=== PATIENT | male | born 1945 | race Caucasian/White ===

== ENCOUNTER 2022-09-08 15:45 | Inpatient (IN) | payer OTHER ==
[~2022-09-08] VITALS: Ht 190.5 cm; Wt 84.1 kg
[2022-09-08 16:53] LABS: Source, Urine Clean Catch
[2022-09-08 16:56] LABS: BASOPHILS ABSOLUTE AUTO 0.03 K/mm3 (0.00-0.23); BASOPHILS PERCENT AUTO 0 % (0-2); EOSINOPHILS ABSOLUTE AUTO 0.06 K/mm3 (0.00-0.68); EOSINOPHILS PERCENT AUTO 1 % (0-6); Hematocrit 40.8 % (37.0-53.0); Hemoglobin 13.9 g/dL (13.5-17.5); IMMATURE GRAN ABSOLUTE AUTO 0.04 K/mm3 (0.00-0.10); IMMATURE GRAN PERCENT AUTO 1 % (0-1); LYMPHOCYTES ABSOLUTE AUTO 0.69 K/mm3 (0.84-5.20); LYMPHOCYTES PERCENT AUTO 10 % (21-46); MONOCYTES ABSOLUTE AUTO 0.53 K/mm3 (0.16-1.47); MONOCYTES PERCENT AUTO 7 % (4-13); Mean Corpuscular HGB 31.4 pg (26.0-34.0); Mean Corpuscular HGB Conc 34.1 g/dL (31.5-36.5); Mean Corpuscular Volume 92 fL (80-100); Mean Platelet Volume 10.4 fL (9.1-12.4); NEUTROPHILS PERCENT AUTO 81 % (41-73); Platelet Count 192 K/mm3 (150-400); RDW Coefficient Variation 12.1 % (11.7-14.2); RDW Standard Deviation 41.5 fL (35.1-46.3); Red Blood Cell Count 4.42 M/mm3 (4.30-5.90); White Blood Cell Count 7.15 K/mm3 (4.00-11.30)
[2022-09-08 17:10] LABS: Alanine Aminotransfer (ALT/SGP 29 U/L (12-78); Albumin, Blood 3.5 g/dL (3.4-5.0); Albumin/Globulin Ratio 0.9 (0.8-1.8); Alk Phos 76 U/L (50-136); Anion Gap 4 mmol/L (6-16); Aspartate Aminotrans (AST/SGOT 24 U/L (12-37); Bilirubin, Total 0.3 mg/dL (0.1-1.0); Blood Urea Nitrogen 14 mg/dL (8-24); Bun/Creatinine Ratio 20.8 (12.0-20.0); CO2, Blood 29 mmol/L (21-32); Calcium, Blood 9.4 mg/dL (8.5-10.1); Chloride, Blood 105 mmol/L (98-108); Creatinine, Blood 0.67 mg/dL (0.60-1.20); Ethanol (Alcohol), Blood, Med <3 mg/dL; Globulin, Blood 3.7 g/dL (2.2-4.0); Glomerular Filtration Rate 95 (60-); Glucose, Blood 120 mg/dL (70-99); Potassium, Blood 3.8 mmol/L (3.5-5.5); Sodium, Blood 138 mmol/L (136-145); Total Protein, Blood 7.2 g/dL (6.4-8.2)
[2022-09-08 17:33] LABS: Appearance, Urine Clear (Clear); Bilirubin, Urine Neg (Neg); Blood, Urine 2+ (Neg); Color, Urine Yellow (P-Yellow); Glucose Qualitative, Urine Neg (Neg); Ketones, Urine Neg (Neg); Leukocyte Esterase, Urine Neg (Neg); Nitrite, Urine Neg (Neg); Protein, Urine 1+ (Neg); Specific Gravity, Urine 1.015 (1.003-1.022); Urobilinogen, Urine NORM (Normal); pH, Urine 6.5 (5.0-8.0)
[2022-09-08 17:51] LABS: U Barbituate Screen Not Detected; U Benzodiazapine Screen Not Detected; U Buprenorphine Screen Not Detected; U Cannabinoids Screen DETECTED; U Cocaine Screen Not Detected; U Methadone Screen Not Detected; U Methamphetamine Screen Not Detected; U Opiates Screen Not Detected; U Oxycodone Screen Not Detected; U Phencyclidine Screen Not Detected; U Propoxyphene Screen Not Detected
[2022-09-08 18:04] LABS: Bacteria Rare /hpf; Squamous Epithelial Cells Rare /hpf (Few); White Blood Cells, Urine 0-2 /hpf (0-5)
[2022-09-08 18:39] LABS: U Amphetamine Screen Not Detected
[2022-09-08] MEDS ORDERED: OMEP20ER PO (21:58)
[2022-09-08] MEDS ORDERED: OXYB5 PO (22:00)
[2022-09-08] MEDS ORDERED: FLUT.05NI (22:00)
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
--- NOTE | 2022-09-10 06:19 | NUR ---
SUMMARY ASSUMED CARE AT 0100, PT HAS BEEN RESTING QUIETLY/SLEEPING, REMAINS A&O X4, ON 2 L O2 VIA NC, SPO2 >92%. PREVIOUS RN STATED PT REFUSED CPAP SO HE WAS PLACED ON O2 TO MAINTAIN SPO2 WHILE SLEEPING, LUNGS ARE COARSE BILATERAL, PT ENC TO DB&C W/STERNAL PRECAUTIONS. PT IS VOIDING SM AMOUNTS, INCONTINENT X2. TYLENOL GIVEN FOR PAIN. NO OTHER ACUTE CHANGES NOTED, CALL LIGHT IN REACH.
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
--- NOTE | 2022-09-11 00:17 | NUR ---
2200: HOSPITALIST CALLED FOR BP OF 180/79, P 104. PT REMAINS ASYMPTOMATIC. OBTAINED ORDER FOR 10MG HYDRALAZINE Q6 2340: HOSPITALIST CALLED FOR PTS BP RISING TO 196/102. PT REMAINS ASYMOTOMATIC AND REPORTS NO PAIN. ORDER OBTAINED FOR TELE AND 5MG LOPRESSOR Q6 0014: TELE REPORTS SR 95 WITH PAC. PT REMAINS ASYMPTOMATIC
--- NOTE | 2022-09-11 01:17 | NUR ---
0110: HOSPITALIST CALLED FOR PTS BP 200/80 WITH A PULSE OF 102. RECIEVED INSTRUCTIONS TO BLADDER SCAN AND REPORT NUMBER BACK TO DR TORRES. ALSO RECIEVED ORDER FOR 10 MG LABETEALOL NOW AND TO REPEAT DOSE AGAIN IN 30 MINUTES IF SYSTOLIC BP IS >160. PT REMAINS ASYMPTOMATIC OF CP, PRESSURE, OR TIGHTNESS.
--- NOTE | 2022-09-11 02:17 | NUR ---
0215: SECOND DOSE OF LABETALOL GIVEN. PT REMAINS ASYMPTOMATIC
--- NOTE | 2022-09-11 04:16 | NUR ---
VSS. SEE PREVIOUS NOTED FOR BP MANAGEMENT. STRAIT CATH DRAINED 425. PT SLEPT ON AND OFF T/O THE NIGHT DUE TO BP MANAGEMENT. INC T/O THE NIGHT. PLAN FOR PT TO BE EVALUATED TODAY FOR POTENTIAL D/C. PT IS CURRENTLY RESTING, IN NO DISTRESS, CALL LIGHT IN REACH
[2022-09-11 11:32] LABS: Hematocrit 40.2 % (37.0-53.0); Mean Corpuscular HGB 31.3 pg (26.0-34.0); Mean Corpuscular HGB Conc 34.8 g/dL (31.5-36.5); Mean Corpuscular Volume 90 fL (80-100); Mean Platelet Volume 10.1 fL (9.1-12.4); Platelet Count 181 K/mm3 (150-400); RDW Coefficient Variation 12.1 % (11.7-14.2); RDW Standard Deviation 40.1 fL (35.1-46.3); Red Blood Cell Count 4.48 M/mm3 (4.30-5.90); White Blood Cell Count 8.58 K/mm3 (4.00-11.30)
[2022-09-11 11:38] LABS: Albumin, Blood 2.9 g/dL (3.4-5.0); Anion Gap 8 mmol/L (6-16); Blood Urea Nitrogen 14 mg/dL (8-24); Bun/Creatinine Ratio 21.5 (12.0-20.0); CO2, Blood 29 mmol/L (21-32); Calcium, Blood 8.7 mg/dL (8.5-10.1); Chloride, Blood 94 mmol/L (98-108); Creatinine, Blood 0.65 mg/dL (0.60-1.20); Glomerular Filtration Rate 96 (60-); Glucose, Blood 158 mg/dL (70-99); Potassium, Blood 3.7 mmol/L (3.5-5.5); Sodium, Blood 131 mmol/L (136-145)
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
--- NOTE | 2022-09-12 06:02 | NUR ---
SHIFT SUMMARY AOX4-ANSWERS QUESTIONS APPROPRIATE. IS SLOW TO RESPOND. DENIES N/T. HAS OCC UNCOORDINATION c BILAT ARMS. BP SLIGHTLY ELEVATED THIS AM HOWEVER PT HAD TO HAVE BM, AFTER SM FORMED BM & BACK IN BED BP DECREASED. REST OF VITALS STABLE. TELE ST 102 c PVC. DENIES ANY PAIN T/O NIGHT. HAS DIM COARSE BREATH SOUNDS c OCC MOIST NONPRODUCTIVE COUGH. PT OCC WILL COUGH AFTER DRINKING WELL, WILL INFORM DAY NURSE. CALL LIGHT IN REACH, WILL MONITOR.
--- NOTE | 2022-09-12 11:30 | NUR ---
PT OBSERVED HAVING SOME DIFFICULTY SWALLOWING PILLS AND COUGHING AFTER EATING AND DRINKING. PT'S REPORTS THIS HAS BEEN AN ISSUE AT HOME. DR. RIZO NOTIFIED AND ST [facility]DEL[facility] ORDERED.
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
--- NOTE | 2022-09-12 22:42 | NUR ---
NSR @ 92 BPM PER HOSPITAL PERSONNEL DIRECTOR DARRION
--- NOTE | 2022-09-13 00:16 | NUR ---
NOTIFIED BY [employer] DARRION THAT PT HR FLIPPED TO AFIB AND HAS AVERAGED 130-160'S ON HR. PT ASYMPTOMATIC AND WAS SLEEPING WHEN THIS OCCURED. NOTIFIED DR BARRON WHO GAVE ORDER FOR 5 MG IV LOPRESSOR AND REPEAT AFTER 30 MINUTES IF HR STILL >110.
[2022-09-13 05:38] LABS: Bun/Creatinine Ratio 32.3 (12.0-20.0); Creatinine, Blood 0.62 mg/dL (0.60-1.20)
--- NOTE | 2022-09-13 06:11 | NUR ---
DIRECTOR PUBLIC SUMMARY PT FLIPPED TO AFIB W/ RVR AROUND MIDNIGHT TONIGHT PER STRADDLE BUG DRIVER. HR 130-160'S. MEDICATED WITH 5 MG IV LOPRESSOR X2 WITH MINIMAL EFFECTIVNESS. GAVE DOSE OF 10 MG CARDIZEM IV PER DR BARRON WHICH BROUGHT HR DOWN TO 110'S FOR SHORT PERIOD OF TIME HOWEVER PT IS NOW BACK TO 140-160'S. PT IS ASYMPTOMATIC AND HAS BEEN SLEEPING MOST OF THE NIGHT, DENIES CP. RECIEVED ORDER TO TRANSFER PT TO PCU ON A CARDIZEM DRIP. REPORT GIVEN TO MANAGER MACHINEERIS PLASCENCIA.
[2022-09-13 06:38] LABS: Calcium, Blood 8.5 mg/dL (8.5-10.1)
--- NOTE | 2022-09-13 06:54 | NUR ---
RECIEVED REPORT FROM STACY MILLS RN. PT TRANSFERRED FROM 217 D/T A.FIB RVR WITH RATE FROM 130-160s. UPON ARRIVAL TO THE UNIT PT IS A&OX4, FOLLOWS COMMANDS, NO C/O PAIN OR CP CURRENTLY. ON THE MONITOR HE IS SR WITH HR 99-110 AND BP IS WNL. 2L NC PLACED ON PT D/T O2 SAT OF 88%. HE HAS A WET AND WEAK COUGH WITH SOME CRACKLES IN HIS LUNGS. PROVIDED PT WITH ICE WATER AND URINAL PER REQUEST. WILL PASS ON TO DAY SHIFT RN THAT PT IS SCHEDULED TO HAVE A BARIUM SWALLOW EVAL TODAY AND AN ECHO.
--- NOTE | 2022-09-13 07:36 | NUR ---
CARE OF PT ASSUMED AT 0700. PT SLEEPING, AWAKENS TO VOICE. PT DENIES C/O PAIN AT REST BUT DID STATE HE HAD PAIN WITH DEEP BREATH. SATS 93% ON 1L. PT IS IN SINUS RYTHYM, RATE 90'S, CARDIZEM GTT WAS NOT STARTED.
[2022-09-13 08:13] LABS: BASOPHILS ABSOLUTE AUTO 0.01 K/mm3 (0.00-0.23); BASOPHILS PERCENT AUTO 0 % (0-2); EOSINOPHILS PERCENT AUTO 0 % (0-6); Hematocrit 39.3 % (37.0-53.0); IMMATURE GRAN ABSOLUTE AUTO 0.02 K/mm3 (0.00-0.10); IMMATURE GRAN PERCENT AUTO 0 % (0-1); LYMPHOCYTES PERCENT AUTO 11 % (21-46); MONOCYTES ABSOLUTE AUTO 1.08 K/mm3 (0.16-1.47); MONOCYTES PERCENT AUTO 11 % (4-13); Mean Corpuscular HGB 31.5 pg (26.0-34.0); Mean Corpuscular HGB Conc 35.6 g/dL (31.5-36.5); Mean Corpuscular Volume 88 fL (80-100); Mean Platelet Volume 9.6 fL (9.1-12.4); NEUTROPHILS ABSOLUTE AUTO 7.58 K/mm3 (1.96-9.15); NEUTROPHILS PERCENT AUTO 78 % (41-73); Platelet Count 220 K/mm3 (150-400); RDW Coefficient Variation 12.2 % (11.7-14.2); RDW Standard Deviation 39.3 fL (35.1-46.3); Red Blood Cell Count 4.45 M/mm3 (4.30-5.90); White Blood Cell Count 9.79 K/mm3 (4.00-11.30)
--- NOTE | 2022-09-13 09:52 | NUR ---
EKG ORDERED AND COMPLETED. PT IN CT FOR PE STUDY. DR RIZO WAS AT BEDSIDE TO SEE PT AND SPOKE W PT'S . PT'S IS CONCERNED THAT PT IS NO WHERE NEAR BASLINE FAR COGNITIVE FUNCTION. PT TO HAVE ECHO AND BARIUM STUDY TODAY WELL.
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
--- NOTE | 2022-09-13 13:26 | NUR ---
DR RIZO CALLED WITH UPDATE, BLOOD CX AND REPEAT HEAD CT TO BE ORDERED.
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
--- NOTE | 2022-09-13 16:50 | NUR ---
NO CHANGE IN CT SCAN. PT RESTING W/O COMPLAINTS. AT BEDSIDE. CONDOM CATH PLACED. ORAL CARE COMPLETED. PT REPOSITIONED ON SIDE, HEELS FLOATED.
[2022-09-14 03:39] LABS: BASOPHILS ABSOLUTE AUTO 0.01 K/mm3 (0.00-0.23); BASOPHILS PERCENT AUTO 0 % (0-2); EOSINOPHILS ABSOLUTE AUTO 0.01 K/mm3 (0.00-0.68); EOSINOPHILS PERCENT AUTO 0 % (0-6); Hematocrit 36.6 % (37.0-53.0); Hemoglobin 12.7 g/dL (13.5-17.5); IMMATURE GRAN ABSOLUTE AUTO 0.03 K/mm3 (0.00-0.10); IMMATURE GRAN PERCENT AUTO 0 % (0-1); LYMPHOCYTES PERCENT AUTO 12 % (21-46); MONOCYTES ABSOLUTE AUTO 0.99 K/mm3 (0.16-1.47); MONOCYTES PERCENT AUTO 11 % (4-13); Mean Corpuscular HGB 31.1 pg (26.0-34.0); Mean Corpuscular HGB Conc 34.7 g/dL (31.5-36.5); Mean Corpuscular Volume 90 fL (80-100); NEUTROPHILS ABSOLUTE AUTO 7.33 K/mm3 (1.96-9.15); NEUTROPHILS PERCENT AUTO 77 % (41-73); Platelet Count 205 K/mm3 (150-400); RDW Coefficient Variation 12.5 % (11.7-14.2); RDW Standard Deviation 41.2 fL (35.1-46.3); Red Blood Cell Count 4.09 M/mm3 (4.30-5.90); White Blood Cell Count 9.47 K/mm3 (4.00-11.30)
[2022-09-14 04:36] LABS: Albumin, Blood 2.3 g/dL (3.4-5.0); Anion Gap 7 mmol/L (6-16); Blood Urea Nitrogen 20 mg/dL (8-24); Bun/Creatinine Ratio 30.8 (12.0-20.0); CO2, Blood 27 mmol/L (21-32); Calcium, Blood 8.5 mg/dL (8.5-10.1); Chloride, Blood 100 mmol/L (98-108); Creatinine, Blood 0.65 mg/dL (0.60-1.20); Glomerular Filtration Rate 96 (60-); Glucose, Blood 124 mg/dL (70-99); Phosphorus, Blood 3.1 mg/dL (2.5-4.9); Potassium, Blood 3.9 mmol/L (3.5-5.5); Sodium, Blood 134 mmol/L (136-145)
--- NOTE | 2022-09-14 07:16 | NUR ---
SHIFT SUMMARY: THIS AUTHOR ASSUMED PATIENT CARES FROM . GENERAL: NO ACUTE EVENTS OVERNIGHT. NEURO: PASCUA YAQUI; A BIT WITHDRAWN. ORIENTED. DENIES PAIN. CARDS: WDL OTHER THAN A BRIEF RUN OF VENTRICULAR TRIGEMINY NOTED ON MONITOR. RESOLVED QUICKLY. RESP: HOME CPAP ON AT NIGHT WITH NO O2 BLEED-IN. SPO2 89-92% OVERNIGHT. MSK: NOT OUT OF BED BUT MOVES ALL EXTREMITIES TO COMMAND. GENERALLY WEAK. INTEG: NO NEW ABNORMALITIES NOTED. TURNED A FEW TIMES FOR PT COMFORT. GI/: NO BM OVERNIGHT; HE IS WEARING CONDOM CATHETER - PATENT AND DRAINING TO GRAVITY. ADEQUATE UOP LAST NIGHT.
--- NOTE | 2022-09-14 07:48 | NUR ---
CARE ASSUMED OF PT AT 0700. PT SLEEPING THIS AM ON HOME CPAP. PT AWAKENS TO VOICE, OX3, SLOW TO RESPOND TO DIRECTIONS AND QUESTIONS. PT DENIES C/O PAIN. C/O DRY MOUTH. PLAN: PULM TOILET, OOB TO CHAIR, PT/OT, SPEECH RE-EVAL.
[2022-09-14 09:17] LABS: International Normalized Ratio 1.09; Prothrombin Time Results 11.4 Sec (9.7-11.5)
--- NOTE | 2022-09-14 14:02 | NUR ---
PT OOB TO CHAIR W PT ASSIST. PT DID MUCH BETTER TODAY, AT 75% BETTER TODAY THAN YESTERDAY. ABLE TO BALANCE SELF AT EDGE OF BED, ABLE TO WALK TO CHAIR W WALKER/GAIT BELT AND SBA. PT SHAVED/ASSISTED. PT BRUSHED HIS TEETH. PT RESTING NOW IN CHAIR W/O COMPLAINTS. PT IS ALSO MUCH MORE ALERT AND CONVERSIVE TODAY. COUGH IS ALSO STRONGER; SPUTUM SENT.
--- NOTE | 2022-09-14 16:28 | NUR ---
PT CONVERTED FROM NSR TO AFIB RVR W RATE 130-160'S. BP HTN. PT AWAKE, ASYMPTOMATIC. DR RIZO CALLED AND NOTIFIED. LOPRESSOR PUSH GIVEN FIRST, FOLLOWED BY CARDIZEM GTT IF RATE NOT CONTROLLED. HEART RATE DOWN 110-120'S.
--- NOTE | 2022-09-14 17:02 | NUR ---
LOPRESSOR GIVEN, HR LOWERED FOR A SHORT PERIOD. CARDIZEM STARTED AT 5MG/HR. BP STABLE. O2 PLACED INITIALLY AT 1L THEN INCREASED TO 2L TO KEEP SATS >90%. PT WITH PRODUCTIVE WET COUGH.
--- NOTE | 2022-09-14 22:54 | NUR ---
pt converted from a fib to sinus rhythm at approx 2145
--- NOTE | 2022-09-15 01:55 | NUR ---
Spiritual care visit conducted. Pt's spouse, in ER and so I provided notification services, a calming presence, grief support, life review and prayer to pt and his dtr Fernanda. I spend over 50 minutes with pt and Fernanda as they process the . Pt and Fernanda display evidence of being comforted.
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
[2022-09-15 07:23] LABS: BASOPHILS ABSOLUTE AUTO 0.02 K/mm3 (0.00-0.23); BASOPHILS PERCENT AUTO 0 % (0-2); EOSINOPHILS ABSOLUTE AUTO 0.03 K/mm3 (0.00-0.68); EOSINOPHILS PERCENT AUTO 1 % (0-6); Hematocrit 31.5 % (37.0-53.0); Hemoglobin 10.9 g/dL (13.5-17.5); IMMATURE GRAN ABSOLUTE AUTO 0.03 K/mm3 (0.00-0.10); IMMATURE GRAN PERCENT AUTO 1 % (0-1); LYMPHOCYTES ABSOLUTE AUTO 1.26 K/mm3 (0.84-5.20); LYMPHOCYTES PERCENT AUTO 20 % (21-46); MONOCYTES ABSOLUTE AUTO 0.65 K/mm3 (0.16-1.47); MONOCYTES PERCENT AUTO 10 % (4-13); Mean Corpuscular HGB 31.4 pg (26.0-34.0); Mean Corpuscular HGB Conc 34.6 g/dL (31.5-36.5); Mean Corpuscular Volume 91 fL (80-100); Mean Platelet Volume 9.2 fL (9.1-12.4); NEUTROPHILS ABSOLUTE AUTO 4.44 K/mm3 (1.96-9.15); NEUTROPHILS PERCENT AUTO 69 % (41-73); Platelet Count 202 K/mm3 (150-400); RDW Coefficient Variation 12.3 % (11.7-14.2); RDW Standard Deviation 41.1 fL (35.1-46.3); Red Blood Cell Count 3.47 M/mm3 (4.30-5.90); White Blood Cell Count 6.43 K/mm3 (4.00-11.30)
--- NOTE | 2022-09-15 07:32 | NUR ---
ASSUMED CARE: PT LAYING IN BED, DAUGHTER AT BEDSIDE. PT IS NSR AT 79 CURRENTLY, ON 1L O2 VIA NC. HEPARIN GTT RUNNING PER ORDERS. NO ACUTE NEEDS AT THIS TIME.
[2022-09-15 07:41] LABS: Bun/Creatinine Ratio 30.5 (12.0-20.0); Calcium, Blood 8.2 mg/dL (8.5-10.1); Creatinine, Blood 0.53 mg/dL (0.60-1.20); Potassium, Blood 3.8 mmol/L (3.5-5.5)
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
--- NOTE | 2022-09-15 18:39 | NUR ---
SHIFT SUMMARY: PT WORKED WITH THERAPY THIS SHIFT. UP IN CHAIR FOR A FEW HOURS. ONE ASSIST WITH WALKER AND GAIT BELT. STERNAL PAIN WITH GETTING UP OUT OF CHAIR AND THERAPY STATES HE DOES BETTER IF HE USES WALKER TO STAND INSTEAD OF CHAIR. REPORT CALLED TO ERIS GARCIA. FAMILY AWARE OF TRANSFER. NO ACUTE NEEDS OR CONCERNS AT THIS TIME.
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
--- NOTE | 2022-09-16 06:12 | NUR ---
SHIFT SUMMARY PT A&O THROUGHOUT SHIFT; RESPONSES ARE A BIT SLOWED BUT APPROPRIATE. PT REPORTS NO PAIN, CHEST PAIN/PRESSURE OR SOB. PT USING PILLOW FOR SPLINTING OF STERNAL FX. I.S AT BEDSIDE, PT ENCOURAGED TO USE. VS; SBP 170'S, SR W/HR IN 80'S, 02 SATS MAINTAINED ON RA. TEMP 99.2 - 99.7; DECLINED MEDICATION DUE TO IT BEING PER RECTUM. PT MEDICATED W/5MG LOPRESSSOR X1 FOR ELEVATED SBP; REASSESSMENT SHOWED SBP 164, THEN MAINTAINED IN 160'S THROUGHOUT SHIFT. PT RESTED WELL THROUGHOUT SHIFT. CONDOM CATHETER IN PLACE AND DRAINING TO GRAVITY; GOOD OUTPUT. NS INFUSING PER EMAR, HEPARIN INFUSING PER EMAR. PT USING HOME CPAP DURING NIGHT. PT REPOSITIONED NEEDED. CALL LIGHT IN REACH AND PT CALLS APPROPRIATELY.
--- NOTE | 2022-09-16 17:24 | NUR ---
END OF SHIFT: NO ACUTE CHANGES FROM ASSUMPTION OF CARE. DENIES CHEST PAIN/PRESSURE OR SOB AT REST. PATIENT WAS 1 PERSON SBA WITH FWW AND GAIT BELT TO RESTROOM. STILL INFUSING 100 mL OF NS, RECIEVING ZOSYN, HAD ONE BOUT OF NAUSEA RESOLVED WITH ZOFRAN. NO SIGNS OF ACUTE DISTRESS. WILL CONTINUE TO MONITOR UNTIL SHIFT CHANGE.
--- NOTE | 2022-09-16 18:03 | NUR ---
PATIENT HAS BEEN COMPLAINING OF STOMACH PAIN 3-4 EASED WITH ZOFRAN. PATIENT NOW HAVING CLINIMIX INFUSING AND NS HAS BEEN ON STANDBY TO PREVENT FLUID OVERLOAD AT THIS TIME. WILL CONTINUE TO MONITOR
--- NOTE | 2022-09-17 02:30 | NUR ---
CALL TO DR. JONNATHAN ALLEN REGARDING PERSISTENT HYPERTENSION EXCEEDING THE PRN ANTIHYPERTENSIVE PARAMETERS OF 170 SYSTOLIC DESPITE ADMINISTRATION OF BOTH PRN METOPROLOL AND PRN HYDRALAZINE. ALSO, REASSESSMENT OF LUNG SOUNDS AUSCULTATED CRACKLES THROUGHOUT. ORDER RECEIVED FOR INCREASE IN HYDRALAZINE PRN DOSE AND TO GIVE AN ADDITIONAL DOSE NOW, PLUS ONE TIME DOSE OF 40 MG IV LASIX. WILL CONTINUE TO MONITOR
--- NOTE | 2022-09-17 04:00 | NUR ---
CALL TO DR. JONNATHAN ALLEN REGARDING CONFIRMED ECG SHOWING ATRIAL FIBRILLATION WITH RVR IN 140S -150S IN PATIENT WITH PREVIOUS INCIDENT OF AFIB RVR DURING THIS HOSPITAL STAY. ORDER RECEIVED TO ADMINISTER 5 MG IV METOPROLOL FOR AFIB WITH SUSTAINED HEART RATE GREATER THAN 120. WILL CONTINUE TO MONITOR.
[2022-09-17 04:37] LABS: BASOPHILS ABSOLUTE AUTO 0.02 K/mm3 (0.00-0.23); BASOPHILS PERCENT AUTO 0 % (0-2); EOSINOPHILS ABSOLUTE AUTO 0.01 K/mm3 (0.00-0.68); EOSINOPHILS PERCENT AUTO 0 % (0-6); Hematocrit 35.3 % (37.0-53.0); Hemoglobin 12.5 g/dL (13.5-17.5); IMMATURE GRAN PERCENT AUTO 1 % (0-1); LYMPHOCYTES ABSOLUTE AUTO 1.15 K/mm3 (0.84-5.20); LYMPHOCYTES PERCENT AUTO 12 % (21-46); MONOCYTES ABSOLUTE AUTO 0.55 K/mm3 (0.16-1.47); MONOCYTES PERCENT AUTO 6 % (4-13); Mean Corpuscular HGB 30.7 pg (26.0-34.0); Mean Corpuscular HGB Conc 35.4 g/dL (31.5-36.5); Mean Corpuscular Volume 87 fL (80-100); Mean Platelet Volume 9.9 fL (9.1-12.4); NEUTROPHILS ABSOLUTE AUTO 8.02 K/mm3 (1.96-9.15); NEUTROPHILS PERCENT AUTO 81 % (41-73); Platelet Count 345 K/mm3 (150-400); RDW Coefficient Variation 11.7 % (11.7-14.2); Red Blood Cell Count 4.07 M/mm3 (4.30-5.90); White Blood Cell Count 9.85 K/mm3 (4.00-11.30)
[2022-09-17 04:55] LABS: Bun/Creatinine Ratio 36.9 (12.0-20.0); Calcium, Blood 8.4 mg/dL (8.5-10.1); Creatinine, Blood 0.41 mg/dL (0.60-1.20); Potassium, Blood 3.5 mmol/L (3.5-5.5)
--- NOTE | 2022-09-17 06:57 | NUR ---
CALL TO DR. JONNATHAN ALLEN REGARDING AFIB RVR WITH PERSISTENT RATES IN THE 140S - 150S. TO PLACE ORDER FOR LIZZ REID
--- NOTE | 2022-09-17 15:10 | NUR ---
CONVERTED TO SINUS RHYTHM AT 1332. CARDIZEM DC'D, CURENT RATE 88.
--- NOTE | 2022-09-17 17:48 | NUR ---
SHIFT SUMMARY; ASSUMED CARE AT 0700. A/A/OX4, COOPERATIVE WITH CARE. CARDIZEM DRIP STARTED AT 5ML/HR SHORTLY AFTER SHIFT CHANGE FOR AFIB HR 140-150'S. TITRATED UP TO 10ML/HR. MOVES SELF ON GURNEY. ENCOURAGED DEEP BREATHING AND IS USE. CONVERTED TO SINUS AT 1332, CARDIZEM DC'D. CLINIMIX INFUSING AT 100/ML HR. CONDOM CATH IN PLACE, UP TO CHAIR WITH 2 PERSON ASSIST IN AFTERNOON, TOLERATED WELL. ASSISTED BACK TO BED. FAMILY AT BEDSIDE MOST OF DAY. BED BATH AND LINEN CHANGE COMPLETED, WILL CONTINUE TO MONITOR AND TREAT UNTIL CHANGE OF SHIFT.
--- NOTE | 2022-09-18 04:55 | NUR ---
SHIFT SUMMARY PT A&Ox4, CALLS AND COMMUNICATES NEEDS APPROPRIATELY. VSS, SpO2> 92% RA, DENIES SOB. BP ELEVATED, MAMANAGED PER EMAR. PT REMAINED IN NSR 90's THIS SHIFT, DENIES CP/PRESSURE. PT REPORTS MILD DISCOMFORT AT STERNUM Fx. CLINIMIX gtt AT 100mLs/hr. PT REMAINED NPO. CONDOM CATH IN PLACE, PATENT AND DRAINING TO GAVITY. PT WITH FLAT AFFECT. NO ACUTE EVENTS THIS SHIFT, WILL REPORT TO ONCOMING RN.
--- NOTE | 2022-09-18 18:49 | NUR ---
END OF SHIFT: PATIENT FAILED BARIUM SWALLOW, GI CONSULTED. DR RIVAS TO SEE AFTER HIS CLINIC. PATIENT DENIES CHEST PAIN OR PRESSURE AT THIS TIME. SPO2 94% OR GREATER ON RA. PATIENT HAS BEEN IMPROVING ON DEPRESSED AFFECT. PATINET STILL ON CLINIMIX FAMILY AT BEDSIDE. ZOSYN Q8 TOLERATING WELL, HAS BEEN AFEBRILE, FLUSHED AT TIME SUN'AQ, WORKED WITH PT/OT WELL NO CONCERNS FROM THIS RN BESIDE NEED FOR PEG. WILL CONTINUE TO MONITOR UNTIL SHIFT CHANGE
--- NOTE | 2022-09-19 04:24 | NUR ---
SHIFT SUMMARY PT A&Ox4, CALLS AND COMMUNICATES NEEDS APPROPRIATELY. VSS, SpO2> 92% RA, DENIES SOB. BP ELEVATED, MAMANAGED PER EMAR. PT REMAINED IN NSR 90's THIS SHIFT, DENIES CP/PRESSURE. PT REPORTS MILD DISCOMFORT AT STERNUM Fx. CLINIMIX gtt AT 100mLs/hr. PT REMAINED NPO. CONDOM CATH IN PLACE, PATENT AND DRAINING TO GAVITY. PT's WITHDRAWN/FLAT AFFECT IMPROVING. NO ACUTE EVENTS THIS SHIFT, WILL REPORT TO ONCOMING RN.
[2022-09-19 05:13] LABS: Hematocrit 31.1 % (37.0-53.0); Hemoglobin 11.2 g/dL (13.5-17.5); Mean Corpuscular HGB 31.4 pg (26.0-34.0); Mean Corpuscular Volume 87 fL (80-100); Platelet Count 402 K/mm3 (150-400); RDW Standard Deviation 38.9 fL (35.1-46.3); Red Blood Cell Count 3.57 M/mm3 (4.30-5.90); White Blood Cell Count 8.92 K/mm3 (4.00-11.30)
--- NOTE | 2022-09-19 08:30 | NUR ---
INITIAL ASSESSMENT: Patient is alert and oriented. He is lying in bed trying to respond to his sisters text on his cell phone. He denies pain at this time. HRR, SR in the 90s. LS DIM in the bases, biox WNL on RA. BT+, pt states he had a BM two days ago. Patient is strict NPO due to aspiration precautions, plan for a possible PEG tube placement today. Dr. Fernandez said he will try and get a hold of general surgery, if they aren't available we will try GI. VSS. Catapress patch placed to right shoulder. Daughter at the bedside. Patient denies other needs at this time. Call light in reach.
--- NOTE | 2022-09-19 14:27 | NUR ---
Patient is lying in bed and alert. Pt immediately talks about the need for feeding tube placement. He talks about the challenges in finding an open facility in [place], the absolute strength and comfort it is to have his dtr Brooke and son Matt here from out of town and the family unit complications that exist outside of Matt and Brooke. We discuss his bereavement process, his mentality as he grieves the loss of some mobility and independence and the strength that he receives from certain friends and particularly Father Vaughn from [place]. Pt admits to spiritual distress as he tells me that he "has had it up to here with all the prayers." He states' "Show me the money." So we leave the spiritual discussion alone for today. I assist in his bereavement process while giving gentle counselor education professor, and I provide thereapeutic listening, a calming presence and anxiety containment. Patient voices appreciation for the visit and shows signs of reduced stress.
--- NOTE | 2022-09-19 15:30 | NUR ---
UPDATE: Patient has been able work with therapy and be OOB to the chair for a couple of hours. Clinimix has been infusing at 100 ml/hr. Condom cath came off, pt cleaned up and brief in place. Day surgery is here to get the patient to have his PEG tube placed.
--- NOTE | 2022-09-19 17:20 | NUR ---
09/19/22 1720 Daryn Vo History, Chart, Medications and Allergies reviewed before start of procedure. MONITOR INTACT WITH CONTINUOUS PULSE OXIMETRY AND INTERMITTENT BP. 3-LEAD EKG REVIEWED WITH PHYSICIAN PRIOR TO START OF PROCEDURE. O2 VIA N/C INTACT THROUGHOUT SEDATION/PROCEDURE. Bite Block Placed. SCHEDULE MANAGER CALLED AND NOTIFIED OF TELE BOX BEING SHUT OFF.
--- NOTE | 2022-09-19 18:00 | NUR ---
Patient arrived back from having his PEG tube placed, orders for the OK to use tomorrow. VSS. PT repositioned to his right side. Patient denies other needs at this time.
--- NOTE | 2022-09-19 18:18 | NUR ---
Summary: Patient has been alert and oriented t/o the shift. He was able to work with therapy-walking around in the room and sitting up in the chair for a couple of hours. HRR, he has been SR in the 90s for the majority of the shift, BP stable. LS DIM in the bases, biox WNL on RA. BT+, pt states he had a BM a couple of days ago. He had a peg tube placed to the upper abd, gauze dressing CDI, able to use tomorrow AM. PPP. No acute changes this shift. Pt has been down graded to medical floor status. Will report to oncoming RN.
[2022-09-20 05:19] LABS: Hematocrit 31.3 % (37.0-53.0); Hemoglobin 10.9 g/dL (13.5-17.5); Mean Corpuscular HGB Conc 34.8 g/dL (31.5-36.5); Mean Corpuscular Volume 89 fL (80-100); Mean Platelet Volume 9.1 fL (9.1-12.4); Platelet Count 408 K/mm3 (150-400); RDW Coefficient Variation 12.3 % (11.7-14.2); Red Blood Cell Count 3.52 M/mm3 (4.30-5.90); White Blood Cell Count 9.36 K/mm3 (4.00-11.30)
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
--- NOTE | 2022-09-20 05:33 | NUR ---
SHIFT SUMMARY PT A&Ox4, CALLS AND COMMUNICATES NEEDS APPROPRIATELY. VSS, SpO2> 92% RA, DENIES SOB. BP ELEVATED, MAMANAGED PER EMAR. NSR 90's, DENIES CP/PRESSURE. PT REMAINED SURGICAL STATUS WITH TELE.PT REMAINED NPO. CONDOM CATH IN PLACE, PATENT AND DRAINING TO GAVITY. PT's WITHDRAWN/FLAT AFFECT IMPROVING. PEG TUBE SITE IS C/D/I, WNL, PT DENIES PAIN OR TENDERNESS. NO ACUTE EVENTS THIS SHIFT, WILL REPORT TO ONCOMING RN.
[2022-09-20 05:54] LABS: Calcium, Blood 8.8 mg/dL (8.5-10.1); Creatinine, Blood 0.58 mg/dL (0.60-1.20); Potassium, Blood 4.1 mmol/L (3.5-5.5)
--- NOTE | 2022-09-20 16:14 | NUR ---
NURSING PCU DAYSHIFT SUMMARY: Pt has done well t/o the shift. Started QID bolus TF this a.m. w/120 mls administered over 1 hr, tolerated TF and flushes well w/no abd discomfort or c/o nausea. Second TF of 240 mls started at approx 1530. Pt worked w/PT/OT today. Ambulated >100 ft using FWW, tolerated well. Spent approx 3hrs OOB in chair this a.m. and approx 1hr in chair this afternoon. ST in this afternoon for eval and education regarding swallowing exercises. Pt has been in good spirits t/o the shift and appears motivated with recovery plan. Family at bedside t/o majority of the day, plan discussed and questions addressed. Pt denies any current needs. Plan to xfer to surgical unit this afternoon, awaiting bed assignment. Cont to monitor until xfer is completed.
--- NOTE | 2022-09-20 18:37 | NUR ---
TRANSFER NOTE TRANSFERRED TO ROOM FROM PCU AT 1700. ALERT AND ORIENTED. NO TELE, ROOM AIR. OBTAINED REPORT AT BEDSIDE FROM JIG AND FIXTURE MAKER. POD 1 PEG TUBE PLACEMENT. TF STARTED TODAY, TOLERATING WELL. NPO. IV FLUIDS RUNNING AT THIS TIME UNTIL TOLERATING WATER BOLUS TOMORROW 09/21/22. SBA UP TO CHAIR TOLERATED. CHEST PAIN FROM STERNAL FX WITH MOVEMENT AND DEEP BREATHS. ADULT CHILDREN PRESENT IN ROOM. RESTING AT THIS TIME. VSS
--- NOTE | 2022-09-21 05:11 | NUR ---
SHIFT SUMMARY PT HAS RESTED T/O THE NIGHT. PT REPORTS SOME FULLNESS WITH TUBE FEEDS BUT OVERALL TOLERATING WITH NO N/V AND NO RESIDUAL. PT RECEIVED A FULL CARTON OF JEVITY BT WAS NOT QUITE ABLE TO FINISH HALF OF THE SECOND CARTON, DUE TO FULLNESS. IVF FLUIDS INFUSING, CONDOM CATH IN PLACE WITH ADEQUATE OUTPUT. PT HAS BEEN HYPETENSIVE THIS SHIFT, MEDICATED PER EMAR WITH EFFECT. PT DENIES PAIN. BED IN LOWEST POSITION, CALL LIGHT WITHIN REACH.
--- NOTE | 2022-09-21 16:58 | NUR ---
PT AMBULATED IN HALLWAYS WITH PHYSICAL THERAPY. CONDOM CATH DISPLACEDWITH ACTIVITY. SPOKE WITH PATIENT WHO STATES HE IS CONTINENT BUT SOMETIMES HAS SMALL AMOUNT URINE LEAKAGE. CONDOM CATH REMOVED AT THIS TIME AND ATTENDS APPLIED
--- NOTE | 2022-09-21 17:24 | NUR ---
PT HAS TOLERATED TWO FULL JEVITY FEEDINGS WITH FLUSH GIVEN OVER 2 HOURS EACH. UP TO CHAIR AND AMBULATED IN [place]AF[place], HAS DENIED NEED FOR PAIN MEDICATION. PT AWAITING INSURANCE AUTH TO DISCHARGE TO SNF IN [place]. PTS SON AND DAUGHTER IN TO VISIT,PT TALKING ABOUT HIS WIFES RECENT AND SAID THAT HE IS GOING TO SEE A GRIEF COUNSELOR AFTER HIS DISCHARGE
[2022-09-22 05:18] LABS: Bun/Creatinine Ratio 23.7 (12.0-20.0); Calcium, Blood 8.6 mg/dL (8.5-10.1); Creatinine, Blood 0.51 mg/dL (0.60-1.20)
--- NOTE | 2022-09-22 06:47 | NUR ---
SHIFT SUMMARY: A&0X4. PT TOLERATED X2 FEEDINGS. FIRST FEEDING PT REFUSED TO TAKE THE REMAINING AMOUNT AND C/O SLIGHT STOMACH ACHE. SECOND FEEDING HE TOLERATED WELL. CONDOM CATH PLACED DURING THE NIGHT, TOLERATED WELL. NO NEW CHANGES THIS SHIFT. PT REMAINS IN BED RESTING AT THIS TIME WITH CALL LIGHT IN REACH. WILL GIVE REPORT TO DAY TIME RN.
--- NOTE | 2022-09-22 10:57 | NUR ---
Spiritual care visit conducted. Visited with pt and his dtr, Shawna. Provided encouragement, therapeutic listening and a calming presence. Pt and Shawna respond well and show signs of being encouraged.
--- NOTE | 2022-09-22 11:16 | NUR ---
CONDOM CATHETER REMOVED, ATTENDS APPLIED. NO REDNESS OR SKIN BREAKDOWN VISIBLE ON PENIS OR SURROUNDING TISSUE
[2022-09-22 12:11] LABS: SARS-Cov-2 (COVID-19) PCR, MMC NEGATIVE (NEGATIVE)
--- NOTE | 2022-09-22 17:23 | NUR ---
tolerated 2 full feedings and flush this shift without nausea or abd. pain/discomfort. pt ambulated in velazquez with walker and standby assist, sitting up in chair visiting with son and daughter.pt disapointed that was not able to discharge today to [place] and aware that transfer will not occur before 09/25/22. pt has denied need for pain med. occ loose, non productive cough
--- NOTE | 2022-09-23 06:09 | NUR ---
SHIFT SUMMARY AOX4. VSS. REPORTS MILD PAIN c MOVEMENT TO MID STERNUM, NONE AT REST & DENIES NEED FOR MEDICATION. WORE CPAP T/O NIGHT, SPO2 >90%, DENIES DYSPNEA. DENIES N/V. NPO FOR ASPIRATION. POD 4-PEG TUBE PLACEMENT. TOLERATING FEEDING @SLOW RATE, DISLIKES BOLUS FEEDS TO GO IN FAST. ABD MILD DISTENDED.ACTIVE BT. CONT/INCONT, ATTENDS CHANGED PRN. CALL LIGHT IN REACH, WILL MONITOR.
--- NOTE | 2022-09-23 13:54 | NUR ---
STARTED TUBE FEED. ORDERS SHOW FOR 2 CANS OVER 60 MIN. PUMP PROGRAM WILL NOT FEED QUITE THAT FAST. WILL BE ABOUT 1 HR 15 MIN. THEN FLUSH. CONTINUE TO MONITOR
--- NOTE | 2022-09-23 17:57 | NUR ---
PT QUITE PLEASANT TODAY. PAIN MANAGED WITH PATCH ON STERNAL AREA. DAUGHTER IN TO VISIT TODAY MUCH OF DAY. APPEARS TO BE IN PRETTY GOOD SPIRITS. FEEDING THRU G TUBE PER ORDER. PT TOLERATING WELL. SITTING IN CHAIR SOME TODAY. NO NEW CONCERNS NOTED. LOOSE STOOL THIS AM. HOLDING COLACE. EDUCATING PT ON USE AND CARE OF PEG TUBE. BED IN LOW POSITION, CALL LITE IN REACH, CALLS APPROP
--- NOTE | 2022-09-24 05:41 | NUR ---
SHIFT SUMMARY NO ACUTE CHANGES THIS SHIFT. AOX4. SLOW TO RESPOND. POD 5-PEG TUBE PLACEMENT. NPO. TOLERATING BOLUS FEEDINGS VIA PUMP. STATES HE FEELS FULL AFTER. DENIES N/V. ACTIVE BT. CHANGED GAUZE & CLEANSED SKIN AROUND PEG TUBE, SKIN ON ABD HAS VARYING STAGES OF BRUISING. PT UP TO CHAIR 1 A c FWW/GB FOR ROUGHLY 2 HRS THIS AM. REPORTS MILD MID STERNUM PAIN, GRIMACES, HOWEVER DENIES NEED FOR MEDS & STATES LIDOCAINE PATCH PLACED YESTERDAY WORKED WELL. AWAITING DC TO SNF. CALL LIGHT IN REACH & PT ABLE TO MAKE NEEDS KNOWN.
--- NOTE | 2022-09-24 09:50 | NUR ---
PATIENT DECLINED TUBE FEEDING AT THIS TIME. STATED HE WOULD LIKE TO WAIT UNTIL AFTER HE "MOVES AROUND AND DOES EXERCISES". PATIENTS DAUGHTER AT BEDSIDE STATES SHE IS PLANNING TO HELP HIM DO HIS EXERCISES AND GET UP IN CHAIR.
--- NOTE | 2022-09-24 17:34 | NUR ---
SHIFT SUMMARY NO ACUTE CHANGES THIS SHIFT. PATIENT STILL TOLERATING TUBE FEEDINGS & MEDS THROUGH PEG TUBE. PATIENT ANXIOUS TO ATTEMOT "GRAVITY FEEDS" HE STATES HE "WILL NOT HAVE PUMP AT OTHER FACILITY". LEFT MESSAGE FOR DIETARY REGARDING THIS. AMBULATING WELL MINIMAL 1P ASSIST W/ FWW & GB. UP TO CHAIR T/O SHIFT. VOIDING WELL W/ URINAL, FREQUENTLY. CALLS APPROPRIATELY, WILL REPORT TO ONCOMING RN AT 1900.
--- NOTE | 2022-09-25 05:37 | NUR ---
SHIFT SUMMARY POD 6-PEG TUBE PLACEMENT. PT SLIGHTLY ANXIOUS ABOUT TRANSITIONING TO SNF & BOLUS TUBE FEEDINGS @BEGINNING OF SHIFT SINCE WE'VE BEEN USING [place] PUMP FOR FEEDS HERE. INFORMED DR FELIX OF PTS CONCERNS & SHE GAVE VERBAL OKAY TO TRY BOLUS FEED INSTEAD OF PUMP. PT TOLERATED OKAY, DID STATE HE FELT A LITTLE BLOATED AFTERWARDS & WOULD PROBABLY HANDLE 1.5 CANS BETTER THEN 2. PASSING GAS, ACTIVE BT, DENIES N/V, REPORTS FEELING FULL. VSS. PLAN TO DC TO [facility] TODAY. CALL LIGHT IN REACH & PT ABLE TO MAKE NEEDS KNOWN.
--- NOTE | 2022-09-25 12:50 | NUR ---
DISCHARGE SUMMARY PT A&OX4, VSS/RA, IV DC'D, NPO/PEG TUBE FEED X 1 PRIOR TO LEAVING WITH 200 MLS FLUSH, VOIDING/URINAL-CONDOM CATH ON WITH APONTE BAG FOR TRANSPORT PURSUANT TO PT REQ, EDU/ENC PT AND DAUGHTER TO BEGIN BLADDER TRAINING/Q2-3 HOURS AND USING BRP TO EMPTY BLADDER AND WEAR ATTENDS FOR LEAKAGE REG PRACTICE TO AVOID URINARY PROBLEMS, STAND PIVOT TO WITH 2 PP FWW/GB [place] [facility] [place] PROVIDED TO DIONNA AT [facility] [phone]. LEFT FLOOR VIA WC WITH PACKAGER HAND X2, WITH ALL PERSONAL POSSESSIONS, WITH SON AND DAUGHTER IN PRIVATE VEHICLE.
== END 2022-09-25 12:30 | DRG 564 ==
LOC: ER 15:45 → SURS 15:46 → ERHOLD 15:46 → SURS 21:04 → ICUE 09-13 06:35 → PCU 09-13 12:29 → SURS 09-13 12:29 → ICUE 09-13 12:30 → PCU 09-15 18:52 → SURS 09-20 16:58
PROVIDERS: Emergency Medicine; Internal Medicine; Surgery; ADMIT Surgery
PROC: 3E03329 Introduction of Other Anti-infective into Peripheral Vein, Percutaneous Approach (ICD-10-PCS; 2022-09-13)
PROC: 0DH63UZ Insertion of Feeding Device into Stomach, Percutaneous Approach (ICD-10-PCS; principal; 2022-09-19 16:00)
DX: S22.20XA Unspecified fracture of sternum, initial encounter for closed fracture (principal); A41.9 Sepsis, unspecified organism; G92.8 Other toxic encephalopathy; J69.0 Pneumonitis due to inhalation of food and vomit; J96.01 Acute respiratory failure with hypoxia; E87.1 Hypo-osmolality and hyponatremia; G47.33 Obstructive sleep apnea (adult) (pediatric); Z20.822 Contact with and (suspected) exposure to COVID-19; Z28.21 Immunization not carried out because of patient refusal; K21.9 Gastro-esophageal reflux disease without esophagitis; I10 Essential (primary) hypertension; R13.10 Dysphagia, unspecified; I48.91 Unspecified atrial fibrillation; R73.9 Hyperglycemia, unspecified; C61 Malignant neoplasm of prostate; Z99.89 Dependence on other enabling machines and devices; Z98.890 Other specified postprocedural states; Z88.8 Allergy status to other drugs, medicaments and biological substances; Z79.899 Other long term (current) drug therapy; V89.2XXA Person injured in unspecified motor-vehicle accident, traffic, initial encounter; Y92.410 Unspecified street and highway as the place of occurrence of the external cause
CPT/HCPCS: 36415; 70450; 71045; 71046; 71260; 72125; 74177; 74230; 80048; 80053; 80069; 81001; 82947; 83036; 83605; 83735; 84484; 85025; 85027; 85379; 85610; 85730; 87040; 87070; 87205; 92526; 92610; 92611; 93005; 93010; 93306; 94640; 94660; 94664; 94762; 96374-59; 96375-59; 97110; 97116; 97116-CQ; 97162; 97166; 97530; 97530-CQ; 97535; 99285-25; A9270; C1751; C9113; G0378; G0480; J0360; J1170; J1200; J1644; J1650; J1885; J1940; J2405; J2543; J2704; J3010; J7030; J7120; Q9967; U0004